=== PATIENT | female | born 2000 | race Caucasian/White ===

== ENCOUNTER 2020-12-24 08:24 | Emergency (ER) | payer BC ==
[~2020-12-24] VITALS: Ht 165.1 cm; Wt 68.0 kg
== END 2020-12-24 13:12 | disposition home or self-care (01) ==
LOC: ER 08:24
DX: S93.491A Sprain of other ligament of right ankle, initial encounter (principal); X50.0XXA Overexertion from strenuous movement or load, initial encounter; Y93.67 Activity, basketball; Y92.89 Other specified places as the place of occurrence of the external cause; Y99.8 Other external cause status

== ENCOUNTER 2020-12-27 11:22 | Outpatient (CLI) | payer BC | END 2020-12-27 11:41 | disposition home or self-care (01) | LOC: MRI 11:22 | PROVIDERS: ATTEND Orthopaedic Surgery | DX: M66.361 Spontaneous rupture of flexor tendons, right lower leg (principal); M67.88 Other specified disorders of synovium and tendon, other site | CPT/HCPCS: 73718 ==

== ENCOUNTER 2020-12-28 13:15 | Outpatient (CLI) | payer BC | END 2020-12-28 13:20 | disposition home or self-care (01) | LOC: SONOGRAMA 13:15 | PROVIDERS: ATTEND Orthopaedic Surgery | DX: M66.361 Spontaneous rupture of flexor tendons, right lower leg (principal) ==

== ENCOUNTER → 2020-12-29 08:00 | Outpatient (CLI) | payer BC, OTHER | END | disposition home or self-care (01) | LOC: LAB 08:00 → EDSTATUS 12-31 12:30 → CIR.AMB 12-31 12:30 | PROVIDERS: ATTEND Orthopaedic Surgery | DX: M66.361 Spontaneous rupture of flexor tendons, right lower leg (principal); E83.42 Hypomagnesemia; D68.8 Other specified coagulation defects; N39.0 Urinary tract infection, site not specified; B95.62 Methicillin resistant Staphylococcus aureus infection as the cause of diseases classified elsewhere; E11.9 Type 2 diabetes mellitus without complications; E03.8 Other specified hypothyroidism; D64.89 Other specified anemias; Z76.89 Persons encountering health services in other specified circumstances; I10 Essential (primary) hypertension; Z20.822 Contact with and (suspected) exposure to COVID-19 ==